=== PATIENT | female | born 1960 | race Caucasian/White ===

== ENCOUNTER → 2020-11-24 01:48 | Outpatient (CLI) | payer OTHER, SELFPAY ==
[2020-11-25 19:27] LABS: SARS-CoV-2 RNA PCR Negative
== END ==
PROVIDERS: Visit Provider Obstetrics & Gynecology
DX: Z01.812 Encounter for preprocedural laboratory examination (principal); Z20.822 Contact with and (suspected) exposure to COVID-19
CPT/HCPCS: C9803; U0003; U0005

== ENCOUNTER 2020-11-27 01:57 | Day surgery (SDC) | payer OTHER, SELFPAY ==
[2020-11-20 15:07] VITALS: BMI 19.5
--- NOTE | 2020-11-27 07:23 | PM.IMHP ---
H&P: HPI History of Present Illness Date/Time: 11/27/20 07:23 60-year-old postmenopausal female w/ a ho COPD, HTN, hypothyroidism, recurrent UTI, tobacco use, dep/anx, who was referred due to atypical cells on pap from 10/05/2020. with a history of HPV with abnormal Pap smear HGSIL underwent colposcopy with cervical biopsies and ECC which revealed severe dysplasia of the cervix HARITHA 3 with endocervical involvement here now for LEEP loop electrosurgical excision procedure she understands her condition procedure and risks involved risk bleeding infection injury to the cervix risk of anesthesia she agrees to proceed informed consent obtained Chief Complaint: HARITHA 3 Review of Systems Review of Systems: All systems reviewed & are unremarkable except as noted in HPI and below PMFSH Past Medical History Medical History (Updated 11/27/20 @ 07:31 by Jens Fuentes MD) HARITHA III (cervical intraepithelial neoplasia grade III) with severe dysplasia COPD (chronic obstructive pulmonary disease) Depression HGSIL (high grade squamous intraepithelial dysplasia) History of vaginal delivery HPV (human papilloma virus) infection Hypertension Hypothyroidism Obesity Surgical History Surgical History (Updated 11/27/20 @ 07:31 by Jens Fuentes MD) History of Family History Family History (Updated 11/27/20 @ 07:32 by Jens Fuentes MD) Other Brain cancer Malignant neoplasm of prostate Social History Social History (Updated 11/27/20 @ 07:33 by Jens Fuentes MD) Smoking packs per day: 1.5 Smoking cigarettes per day: 30.0 Years smoked: 45 Smoking pack-years: 67.50 Smoking status: Current every day smoker Tobacco type: cigarettes Second hand tobacco smoke exposure: Yes Alcohol intake: current Drinks per week: 12 Substance use: current Substance use type: marijuana Other substance usage details: SMOKE/GUMMIES Last use: 11/19/20 Living arrangements: alone Occupation/Education: unemployed Gender identity (if verbalized by the patient): Female Sexual Orientation (if Verbalized by the Patient): Straight or Heterosexual Spiritual care concerns: No Agree to blood products: Yes Meds Home Medications and Allergies Home Medications Medication Instructions Recorded Confirmed Type albuterol 180 mcg INHALATION TID 11/20/20 11/20/20 History budesonide-formoterol [Symbicort] 2 puff INHALATION BID 11/20/20 11/20/20 History carvedilol 6.25 mg PO BID 11/20/20 11/20/20 History cholecalciferol (vitamin D3) 50 mcg PO DAILY 11/20/20 11/20/20 History [Vitamin D3] citalopram 40 mg PO DAILY 11/20/20 11/20/20 History folic acid 1 mg PO DAILY 11/20/20 11/20/20 History levothyroxine 100 mcg PO DAILY 11/20/20 11/20/20 History losartan 50 mg PO DAILY 11/20/20 11/20/20 History montelukast 10 mg PO DAILY 11/20/20 11/20/20 History thiamine HCl (vitamin B1) [Vitamin 100 mg PO DAILY 11/20/20 11/20/20 History B-1] Allergies Allergy/AdvReac Type Severity Reaction Status Date / Time Sulfa (Sulfonamide Allergy Intermediate Swelling Verified 11/20/20 15:03 Antibiotics) Penicillins Allergy Unknown Verified 11/20/20 15:03 Exam Const: General: cooperative, healthy appearing, comfortable, no acute distress, well developed, alert, awake and Physically active Nutritional Appearance: average body habitus and obese Orientation/consciousness: patient oriented x3 Limitations: no limitations HENMT: Head: normal to inspection Eyes: General: appearance normal, both eyes and all related structures Neck: Neck: normal visual inspection Chest: Chest palpation & inspection: normal inspection of the chest Resp: Effort & Inspection: normal respiratory effort Auscultation: clear to auscultation bilaterally Cardio: Rate: regular rate Rhythm: regular rhythm GI: Inspection: normal to inspection GI Palp: Yes Soft to palpation Auscultation: normal bowel sounds : External Fema
--- NOTE | 2020-11-27 07:26 | WPDHPUPDATE1 ---
History and Physical Update Update Date/Time: 11/27/20 07:26 History and Physical has been reviewed, including an updated exam of the patient. There are NO changes in the patient's condition. Risks, benefits, and alternatives have been discussed and questions answered. Patient agrees to proceed with procedure. 60-year-old postmenopausal female w/ a ho COPD, HTN, hypothyroidism, recurrent UTI, tobacco use, dep/anx, who was referred due to atypical cells on pap from 10/05/2020. with a history of HPV with abnormal Pap smear HGSIL underwent colposcopy with cervical biopsies and ECC which revealed severe dysplasia of the cervix HARITHA 3 with endocervical involvement here now for LEEP loop electrosurgical excision procedure she understands her condition procedure and risks involved risk bleeding infection injury to the cervix risk of anesthesia she agrees to proceed informed consent obtained
[2020-11-27 12:40] VITALS: BP 159/94; PULSE 73; RESP 16; TEMP 36.4; O2SAT 98
[2020-11-27] MEDS: ACETAMINOPHEN 500 MG TABLET 1000 MG PO (12:46)
--- NOTE | 2020-11-27 12:57 | WPDANESEPPF ---
Anes - Initial Pre Proc Eval Procedure: Operation Date: 11/27/20 14:00 Proposed Procedures p Loop Electrical Excision Procedure - Jens Fuentes MD Date/Time: 11/27/20 12:57 Surgeon: Jens Fuentes MD Pre Op Diagnosis: abnormal squamous cells Patient Data Age: 60 Gender: F Height: 5 ft 3 in Weight: 49.9 kg Allergies Allergy/AdvReac Type Severity Reaction Status Date / Time Sulfa (Sulfonamide Allergy Severe Swelling Verified 11/27/20 12:41 Antibiotics) Penicillins Allergy Unknown Verified 11/20/20 15:03 Home Medications Medication Instructions Recorded Confirmed Type albuterol 180 mcg INHALATION TID 11/20/20 11/20/20 History budesonide-formoterol [Symbicort] 2 puff INHALATION BID 11/20/20 11/27/20 History carvedilol 6.25 mg PO BID 11/20/20 11/27/20 History cholecalciferol (vitamin D3) 50 mcg PO DAILY 11/20/20 11/27/20 History [Vitamin D3] citalopram 40 mg PO DAILY 11/20/20 11/27/20 History folic acid 1 mg PO DAILY 11/20/20 11/27/20 History levothyroxine 100 mcg PO DAILY 11/20/20 11/27/20 History losartan 50 mg PO DAILY 11/20/20 11/27/20 History montelukast 10 mg PO DAILY 11/20/20 11/27/20 History thiamine HCl (vitamin B1) [Vitamin 100 mg PO DAILY 11/20/20 11/27/20 History B-1] Patient hx anesthesia problems: none Family hx anesthesia problems: none PMFSH Past Medical History Medical History (Updated 11/27/20 @ 12:57 by Brett Abrams MD) HARITHA III (cervical intraepithelial neoplasia grade III) with severe dysplasia COPD (chronic obstructive pulmonary disease) Depression HGSIL (high grade squamous intraepithelial dysplasia) History of vaginal delivery HPV (human papilloma virus) infection Hypertension Hypothyroidism Surgical History Surgical History History of Family History Family History Other Brain cancer Malignant neoplasm of prostate Social History Social History Smoking packs per day: 1.5 Smoking cigarettes per day: 30.0 Years smoked: 45 Smoking pack-years: 67.50 Smoking status: Current every day smoker Tobacco type: cigarettes Second hand tobacco smoke exposure: Yes Alcohol intake: current Drinks per week: 12 Substance use: current Substance use type: marijuana Other substance usage details: SMOKE/GUMMIES Last use: 11/19/20 Living arrangements: alone Occupation/Education: unemployed Gender identity (if verbalized by the patient): Female Sexual Orientation (if Verbalized by the Patient): Straight or Heterosexual Spiritual care concerns: No Agree to blood products: Yes Anes - Eval Final PreProcedure Day of Procedure 11/27/20 12:57 Patient weight: thin Heart: regular rate and rhythm Lungs: clear to auscultation Airway: Mallampati scale class II and special considerations poor dentition Neurological: alert and oriented Last oral intake: >/= 8 hours ASA classification: III Emergent: no Anesthetic plan: proceed Anesthesia type and monitoring: general GIVS and standard monitoring Informed Consent: The patient's anesthetic plan and its attendant risks and benefits were discussed with the patient/family/POA. Questions were solicited and answers provided to the satisfaction of the patient/family/POA.
[2020-11-27] MEDS: LACTATED RINGERS 1,000 ML 30 ML IV CONT (13:02)
[2020-11-27 14:22] VITALS: BP 150/90; PULSE 59; RESP 14; O2SAT 95
--- NOTE | 2020-11-27 14:27 | PM.PROC ---
Procedure Note - Detailed Date of procedure: 11/27/20 Pre-op diagnosis: abnormal squamous cells HARITHA 3 Post-op diagnosis: same (HARITHA 3) Procedure performed: LEEP loop electrosurgical excision procedure Description of procedure: Informed consent obtained patient taken to the operating room placed in the dorsal lithotomy position after IV general anesthesia administered prepped and then draped in the sterile fashion. Time-out was performed. Weighted speculum was placed in the vagina anterior retractor placed sutures placed at 3 and 9:00 a.m. on the cervix. Ascetic acid wash followed by the Lugol staining of the cervix revealed the nonstaining areas of the endocervix. A medium loop was then used to excise the ectocervix. Small loop was used to excise the endocervix. Ball electrode used to endo coagulated the base of the cervix. Monsel's solution applied for hemostasis. Suture crossed the cervix and excised. Patient was taken to the recovery room stable condition Implants: None Anesthesia: MAC Surgeon: Jens Fuentes MD Nurse Aide Evaluator: orthopedic assistant x2 Rhianna Estimated blood loss (mL): 0 IV fluids (mL): 500 Urine output (mL): 100 Drains: No Packing: No Pathology: yes (LEEP ectocervix and endocervix) Complications: None Condition: stable Disposition: PACU Findings: Atrophic cervix and vagina nonstaining areas of the endocervix hemostasis excellent with Monsel's solution.
--- NOTE | 2020-11-27 14:31 | PM.DS ---
DS: Admitting Diagnosis Admitting Diagnosis Admitting Diagnosis: HARITHA-III DS: Discharge Diagnosis Discharge Diagnosis (1) HPV (human papilloma virus) infection: Code(s): B97.7 - Papillomavirus as the cause of diseases classified elsewhere Status: Acute (2) HGSIL (high grade squamous intraepithelial dysplasia): Status: Acute (3) HARITHA III (cervical intraepithelial neoplasia grade III) with severe dysplasia: Code(s): D06.9 - Carcinoma in situ of cervix, unspecified Status: Acute DS: Summary Hospital Course Reason for hospitalization: LEEP for HARITHA 3 Hospital Course: Uncomplicated Time spent discussing smoking cessation with patient: 3 to 10 minutes Status at Discharge Functional status at discharge: independent ambulation Overall status at discharge: patient is back to baseline Time Spent with Patient Time attestation: Total time spent providing and/or coordinating discharge services: Time spent: Less than 30 minutes Exam Const: General: cooperative HENMT: Head: normal to inspection Eyes: General: appearance normal, both eyes and all related structures Neck: Neck: normal visual inspection Chest: Chest palpation & inspection: normal inspection of the chest Resp: Effort & Inspection: normal respiratory effort Cardio: Rate: regular rate GI: Inspection: normal to inspection : External Female Exam: normal external appearance Back/Spine/Pelvis: Back: no CVA tenderness Skin: General skin exam: normal color Neuro: General: patient oriented x3 Extrem: General: normal to inspection Psych: Appearance: grossly normal DS: Data Data Completed and Pending Pending studies at discharge: Pending at discharge 11/27/20 14:06 Surgical [PTH] Routine Discharge Plan Discharge Patient Disposition: Home, Self-Care Discharge Instructions: Routine Stand Alone Forms: General Discharge Instructions Follow-up/Referrals: Jens Fuentes MD [Physician] - 6 Weeks Discharge Medications: New ibuprofen 400 mg tablet 400 mg PO Q6H PRN (Reason: pain) Qty: 30 RF: 0 Continued losartan 50 mg Tablet 50 mg PO DAILY RF: 0 carvedilol 6.25 mg Tablet 6.25 mg PO BID RF: 0 citalopram 40 mg Tablet 40 mg PO DAILY RF: 0 thiamine HCl (vitamin B1) [Vitamin B-1] 100 mg Tablet 100 mg PO DAILY RF: 0 levothyroxine 100 mcg Tablet 100 mcg PO DAILY RF: 0 folic acid 1 mg Tablet 1 mg PO DAILY RF: 0 montelukast 10 mg Tablet 10 mg PO DAILY RF: 0 albuterol 90 mcg/actuation Aerosol 180 mcg INHALATION TID RF: 0 budesonide-formoterol [Symbicort] 80-4.5 mcg/actuation Hfa Aerosol Inhaler 2 puff INHALATION BID RF: 0 cholecalciferol (vitamin D3) [Vitamin D3] 50 mcg (2,000 unit) Tablet 50 mcg PO DAILY RF: 0 Quality If No VTE Prophylaxis Answer both mechanical and pharmacologic: Reason no mechanical VTE proph: low risk/not indicated Reason no pharmacologic proph: low risk/not indicated
[2020-11-27 14:50] VITALS: BP 185/105; PULSE 66; RESP 14; O2SAT 88
[2020-11-27 15:20] VITALS: BP 177/103; PULSE 66; RESP 16; O2SAT 96
--- NOTE | 2020-11-27 15:29 | SUR.PHASEII ---
DR. GARCIA CALLED PT[facility]. DR. GARCIA DIDN'T ORDER ANY INTERVENTIONS/MEDS DUE TO HER BRADYCARDIA AND NO SYMPTOMS EG. SOB. OKAY'D FOR HER TO GO HOME AND TAKE HOME BP MEDS.
[2020-11-27 15:59] VITALS: BP 200/101; PULSE 67; RESP 16; O2SAT 96
== END 2020-11-27 16:00 | disposition home or self-care (01) ==
PROVIDERS: PCP Internal Medicine; Visit Provider Obstetrics & Gynecology
PROC: 0UBC7ZZ Excision of Cervix, Via Natural or Artificial Opening (ICD-10-PCS; CPT 57522; principal; 2020-11-27 14:00)
DX: D06.1 Carcinoma in situ of exocervix (principal); N72 Inflammatory disease of cervix uteri; B97.7 Papillomavirus as the cause of diseases classified elsewhere; J44.9 Chronic obstructive pulmonary disease, unspecified; I10 Essential (primary) hypertension; E03.9 Hypothyroidism, unspecified; F17.210 Nicotine dependence, cigarettes, uncomplicated; F12.90 Cannabis use, unspecified, uncomplicated; Z79.51 Long term (current) use of inhaled steroids
CPT/HCPCS: 57522; 88305; A9270; J0690; J2250; J2704; J3010; J7120